=== PATIENT | female | born 1965 | race Caucasian/White ===

== ENCOUNTER 2021-05-09 10:14 | Emergency (ER) | payer OTHER ==
[~2021-05-09] VITALS: Ht 172.7 cm; Wt 67.1 kg
[2021-05-09 10:59] VITALS: BP 100/57
== END 2021-05-09 11:00 | disposition home or self-care (01) ==
LOC: ER 10:14
DX: M54.5 Low back pain (principal); M54.6 Pain in thoracic spine
CPT/HCPCS: 93005; A4663